=== PATIENT | female | born 1985 | race American Indian/Alaskan Native ===

== ENCOUNTER 2017-04-23 23:34 | Emergency (ER) | payer MEDICAID ==
--- NOTE | 2017-04-24 01:00 | XRay Report ---
FINAL REPORT EXAM: XR KNEE 1-2V RT HISTORY: Right knee pain. TECHNIQUE: Frontal and lateral radiographs of the right knee were obtained. No prior studies are available for comparison. FINDINGS: There is no fracture or dislocation. No other discrete osseous abnormality is seen. No significant soft tissue abnormality is identified. If pain persists, MRI examination is suggested for more definitive evaluation. IMPRESSION: No fracture, dislocation, or other osseous abnormality.
--- NOTE | 2017-04-24 07:44 | Emergency Department Report ---
ED Lower Extremity HPI - General Chief Complaint: Extremity Injury, Lower Stated Complaint: BACK PAIN Time Seen by Provider: 04/24/17 07:06 Source: patient, family Mode of arrival: Ambulatory Limitations: No Limitations - History of Present Illness Initial Comments: This is a 31-year-old female here reports that she injured her right knee 5 days ago after playing with her kids. She says she is limping but able to walk. She says she thinks she might have injured or pull something was up a basketball with her kids. Pain is 8 out of 10 located to right anterior knee pain is achy and worse with movement better with rest then .she took over-the- counter pain medication that didn't help. Denies any pain radiating distally or proximally. Reports swelling. Patient with h/o hiv and immunocompetent. She has primary care and infectious disease doctor. Patient is on medication for HIV. Denies any fever or chills. Denies any redness or change in temperature when compared to left knee. MD Complaint: knee injury Onset/Timin -: days(s) Injury: Knee: Right (pain and swelling after injury) Type of Injury: hyperextension Place: street/outdoors Severity: severe Severity scale (0 -10): 8 Improves With: NSAID, rest Worsens With: weight bearing, movement, palpation Context: jumping Associated Symptoms: swelling, able to partially bear weight. denies: snap/pop sensation, numbness, tingling Treatments Prior to Arrival: NSAIDS - Related Data Home Medications Medication Instructions Recorded Confirmed Last Taken Emtricitabin/Tenofovir [TRUVADA 1 tab PO DAILY 09/17/14 02/10/15 02/09/15 200-300 mg] Raltegravir Potassium [Isentress] 400 mg PO BID 09/17/14 02/10/15 02/09/15 Previous Rx's Medication Instructions Recorded Last Taken Type Ferrous Sulfate [Feosol 325 MG tab] 325 mg PO BID #60 tablet 01/10/15 02/09/15 Rx Acetamin/Codeine 120-12Mg/5 ml 5 ml PO TID PRN #30 oz 02/10/15 Unknown Rx [Tylenol/Codeine] Sulfamethoxazole/Trimethoprim 1 each PO BID #20 tablet 02/10/15 Unknown Rx [Bactrim DS TAB] HYDROcodone/APAP 10-325 [[place] 1 each PO Q4-6H PRN #25 tablet 02/28/15 Unknown Rx 10/325] Sulfamethoxazole/Trimethoprim 1 each PO Q12H #20 tablet 02/28/15 Unknown Rx [Bactrim DS TAB] Ibuprofen [Motrin] 600 mg PO Q8H PRN #12 tablet 04/24/17 Unknown Rx Allergies Allergy/AdvReac Type Severity Reaction Status Date / Time aspirin Allergy Swelling Verified 02/28/15 09:18 ED Review of Systems ROS: Stated complaint: BACK PAIN Other details as noted in HPI Comment: All other systems reviewed and negative Constitutional: no symptoms reported Respiratory: no symptoms reported Cardiovascular: denies: chest pain, palpitations, dyspnea on exertion, edema, syncope, paroxysmal nocturnal dyspnea Gastrointestinal: denies: abdominal pain, nausea, vomiting, diarrhea Genitourinary: denies: dysuria Musculoskeletal: joint swelling, arthralgia. denies: back pain, myalgia Skin: denies: rash Neurological: abnormal gait. denies: headache, numbness, paresthesias ED Past Medical Hx - Past Medical History Previous Medical History?: Yes Hx HIV: Yes (on meds) Additional medical history: SICKLE CELL TRAIT. SCOLEOSIS - Surgical History Past Surgical History?: Yes Additional Surgical History: LEEP. - Family History Family history: hypertension - Social History Smoking Status: Never Smoker Substance Use Type: None - Medications Home Medications: Home Medications Medication Instructions Recorded Confirmed Last Taken Type Emtricitabin/Tenofovir [TRUVADA 1 tab PO DAILY 09/17/14 02/10/15 02/09/15 History 200-300 mg] Raltegravir Potassium [Isentress] 400 mg PO BID 09/17/14 02/10/15 02/09/15 History Ferrous Sulfate [Feosol 325 MG tab] 325 mg PO BID #60 tablet 01/10/15 02/10/15 02/09/15 Rx Acetamin/Codeine 120-12Mg/5 ml 5 ml PO TID PRN #30 oz 02/10/15 Unknown Rx [Tylenol/Codeine] Sulfamethoxazole/Trimethoprim 1 each PO BID #20 tablet 02/10/15 Unknown Rx [Bactrim DS TAB] HYDROcodone/APAP 10-325 [[place] 1 each PO Q4-6H PRN #25 tablet 02/28/15 Unknown Rx 10/325] Sulfamethoxazole/Trimethoprim 1 each PO Q12H #20 tablet 02/28/15 Unknown Rx [Bactrim DS TAB] Ibuprofen [Motrin] 600 mg PO Q8H PRN #12 tablet 04/24/17 Unknown Rx ED Physical Exam - General Limitations: No Limitations General appearance: alert, in no apparent distress - Head Head exam: Present: atraumatic, normocephalic, normal inspection - Eye Eye exam: Present: normal appearance, PERRL, EOMI Pupils: Present: normal accommodation - ENT ENT exam: Present: normal exam, normal orophraynx, mucous membranes moist - Neck Neck exam: Present: normal inspection, full ROM, other (no C-spine tenderness). Absent: tenderness, meningismus, lymphadenopathy, thyromegaly - Respiratory Respiratory exam: Present: normal lung sounds bilaterally. Absent: respiratory distress, chest wall tenderness, accessory muscle use - Cardiovascular Cardiovascular Exam: Present: regular rate, normal rhythm, normal heart sounds. Absent: systolic murmur, diastolic murmur - GI/Abdominal GI/Abdominal exam: Present: soft, normal bowel sounds. Absent: distended, tenderness, guarding, rebound, rigid, organomegaly, mass, bruit, pulsatile mass , hernia - Extremities Exam Extremities exam: Present: tenderness (right anterior knee), normal capillary refill, joint swelling, other (no clubbing, cyanosis to extremities. Patient with swelling to right anterior knee otherwise all extremities without any swelling. +2 pulses all extremities. No neurovascular compromise. No abrasion , laceration or contusion. Positive swelling to right knee without any effusion or crepitus. Painful to weight-bear to right knee). Absent: normal inspection, full ROM (patient able to flex and extend her knee but she reports painful with active range of motion to right knee.), pedal edema, calf tenderness - Expanded Lower Extremity Exam Right Hip exam: Present: normal inspection, full ROM, pelvic stability. Absent: tenderness, swelling, abrasion, laceration, ecchymosis, deformity, crepidus, dislocation, erythema, external rotation, internal rotation, shortening Upper Leg exam: Present: normal inspection, full ROM. Absent: tenderness, swelling, abrasion, laceration, ecchymosis, deformity, crepidus, dislocation, erythema Knee exam: Present: full ROM (painful with flexion and extension of right knee) , tenderness, swelling (right anterior knee), pain w/ pronation/supination, full knee extension (Flonase extension but painful to extend.). Absent: normal inspection, abrasion, laceration, ecchymosis, deformity, crepidus, dislocation, erythema, effusion, pain/laxity with valgus, pain/laxity with varus Lower Leg exam: Present: normal inspection, full ROM. Absent: tenderness, swelling, abrasion, laceration, ecchymosis, deformity, crepidus, dislocation, erythema, palpable cord, Tish's sign Ankle exam: Present: normal inspection, full ROM. Absent: tenderness, swelling , abrasion, laceration, ecchymosis, deformity, crepidus, dislocation, erythema Foot/Toe exam: Present: normal inspection, full ROM. Absent: tenderness, swelling, abrasion, laceration, ecchymosis, deformity, crepidus, dislocation, erythema, foreign body, nail avulsion, subungual hematoma Neuro vascular tendon exam: Present: no vascular compromise. Absent: pulse deficit, abnormal cap refill, motor deficit, sensory deficit, tendon deficit, extremity cold to touch, pallor, abnormal 2-point discrimination, decreased fine /light touch, foot drop, peroneal nerve deficit, significant pain with passive ROM of distal joint Gait: Positive: antalgic - Back Exam Back exam: Present: normal inspection, full ROM, other (patient ambulates but she believes with a limp.). Absent: tenderness, CVA tenderness (R), CVA tenderness (L), muscle spasm, paraspinal tenderness, vertebral tenderness, rash noted - Neurological Exam Neurological exam: Present: alert, oriented X3, abnormal gait (patient with limp into right lower extremity due to injury of right knee.), reflexes normal. Absent: motor sensory deficit - Psychiatric Psychiatric exam: Present: normal affect, normal mood - Skin Skin exam: Present: warm, dry, intact, normal color. Absent: rash ED Course Vital Signs 04/24/17 04/24/17 04/24/17 00:24 07:57 08:12 Temperature 98.4 F 98.1 F Pulse Rate 78 73 Respiratory 17 18 12 Rate Blood Pressure 115/64 Blood Pressure 104/70 [Left] O2 Sat by Pulse 98 98 Oximetry - Reevaluation(s) Reevaluation #1: 04/24/17 08:28 Patient given [place] 5/325 2 tablets by mouth in emergency room. See procedure note for suspension details - Orthopedic Splinting/Casting Injury #1 Side: right Lower Extremity Injury Location: knee Lower Extremity Immobilizer: Lito wrap Other Orthopedic Equipment: crutches Additional Comments: Patient with good neurovascular status post splint. Good color, sensation, movement and temperature to both feet. ED Lower Extremity MDM - Radiology Data X-ray of right knee shows patient with no fracture or dislocation. No significant soft tissue swelling. Physical finding for tenderness and mild swelling to anterior right knee. - Medical Decision Making ED course: Patient here after injuring her right knee 5 days ago and basketball with her kids. She reports ongoing pain despite taking in and said. She is able to ambulate but she is limping and so she has severe pain when she bears weight. Physical findings for moderate swelling and tenderness anterior knee. X-ray shows no acute fracture dislocation and no mention of soft tissue swelling but suggests MRI if the patient continues to have pain. I discussed patient her x-ray results and my physical findings and discussed treatment plan , follow-up. She was given [place] 5/325 2 tablets by mouth in emergency room with positive relief of pain. Please see procedure note for splint in detail. Patient discharged home with her family in stable condition with prescription for Motrin and Rice therapy explained. Critical care attestation.: If time is entered above; I have spent that time in minutes in the direct care of this critically ill patient, excluding procedure time. ED Disposition Clinical Impression: Difficulty in weight bearing, Arthralgia of right knee Knee sprain Qualifiers: Encounter type: initial encounter Involved ligament of knee: unspecified ligament Laterality: right Qualified Code(s): S83.91XA - Sprain of unspecified site of right knee, initial encounter Right knee injury Qualifiers: Encounter type: initial encounter Qualified Code(s): S89.91XA - Unspecified injury of right lower leg, initial encounter Disposition: TO HOME OR SELFCARE Is pt being admited?: No Does the pt Need Aspirin: No Condition: Stable Instructions: Arthralgia (ED), Knee Sprain (ED), Knee Pain (ED), Knee Exercises (GEN), Crutch Instructions (ED), RICE Therapy (ED) Additional Instructions: Please follow up with primary care as recommended and U or infectious disease doctor now that [facility] hospital for [facility] injury and has knee sprain. Increase fluid intake Take medication as prescribed . Referred to discharge instruction in Rice therapy. follow-up with orthopedic doctor as instructed. If you develop, redness, increased swelling, fever and/or chills and increasing pain please return to the emergency room otherwise follow-up with orthopedic doctor tomorrow Prescriptions: Ibuprofen [Motrin] 600 mg PO Q8H PRN #12 tablet PRN Reason: Pain Referrals: PRIMARY MD JULIENNE [Primary Care Provider] - 04/28/17 TIMA NAYAK MD [Staff Physician] - 04/25/17 Forms: Work/School Release Form(ED)
[2017-04-24] MEDS ORDERED: NORCO 5/325 PO ONE (07:45)
[2017-04-24 08:15] VITALS: BP 104/70
== END 2017-04-24 09:20 | disposition home or self-care (01) ==
LOC: ED 23:34
DX: S83.91XA Sprain of unspecified site of right knee, initial encounter (principal); X58.XXXA Exposure to other specified factors, initial encounter; Y93.89 Activity, other specified; Y92.89 Other specified places as the place of occurrence of the external cause; Y99.8 Other external cause status

== ENCOUNTER 2017-05-30 12:34 | Emergency (ER) | payer MEDICAID ==
[2017-05-30 16:44] VITALS: BP 109/69
[2017-05-30] MEDS ORDERED: NORCO 5/325 PO ONE (16:49)
--- NOTE | 2017-05-30 16:52 | Emergency Department Report ---
Chief Complaint: Skin/Abscess/Foreign Body Stated Complaint: BURNING AT C SECTION SITE Time Seen by Provider: 05/30/17 14:55 - HPI History of Present Illness: The patient is a 31-year-old female presents with hours of abdominal pain and right wrist pain. The patient reports on and off suprapubic abdominal pain for greater than the past 2 years, recurrent one week ago, burning and sharp in quality, 10/10 in severity, exacerbated with bending over. She shares that her abdominal pain has been occurring since greater than 2 years ago. She states that her right wrist pain has been present for greater than one month , achy in quality, mild in severity, exacerbated with movement of the wrist. She denies trauma to the wrist or abdomen, chills, night sweats, diarrhea, blood in the stool, dark tarry stool, dysuria, hematuria, flank pain, genital discharge, inability to pass flatus. - Exam Vital Signs: Vital Signs 05/30/17 05/30/17 12:51 16:33 Temperature 98.7 F Pulse Rate 79 79 Respiratory 19 Rate Blood Pressure 113/73 109/69 O2 Sat by Pulse 97 97 Oximetry MSE screening note: Focused history and physical exam performed. Due to findings the following was ordered: ED Disposition for MSE Condition: Stable Referrals: PRIMARY CARE, [Primary Care Provider] - 3-5 Days
[2017-05-30 17:28] LABS: Bilirubin,Urine NEG (Negative); Blood,Urine NEG (Negative); Color,Urine Yellow (Yellow); HCG Qualitative,Urine Negative (Negative); Protein,Urine <15 mg/dL mg/dL (Negative)
--- NOTE | 2017-05-30 18:41 | Emergency Department Report ---
HPI - General Chief Complaint: Skin/Abscess/Foreign Body Time Seen by Provider: 05/30/17 14:55 - HPI HPI: The patient is a 31-year-old female presents with hours of abdominal pain and right wrist pain. The patient reports on and off suprapubic abdominal pain for greater than the past 2 years, recurrent one week ago, burning and sharp in quality, 10/10 in severity, exacerbated with bending over. She shares that her abdominal pain has been occurring since greater than 2 years ago. She states that her right wrist pain has been present for greater than one month , achy in quality, mild in severity, exacerbated with movement of the wrist. She denies trauma to the wrist or abdomen, chills, night sweats, diarrhea, blood in the stool, dark tarry stool, dysuria, hematuria, flank pain, genital discharge, inability to pass flatus. ED Past Medical Hx - Past Medical History Previous Medical History?: Yes Hx Arthritis: Yes Hx HIV: Yes (on meds) Additional medical history: SICKLE CELL TRAIT. SCOLIOSIS - Surgical History Past Surgical History?: Yes Additional Surgical History: LEEP. - Family History Family history: hypertension - Social History Smoking Status: Current Some Day Smoker Substance Use Type: None - Medications Home Medications: Home Medications Medication Instructions Recorded Confirmed Last Taken Type Emtricitabin/Tenofovir [TRUVADA 1 tab PO DAILY 09/17/14 02/10/15 02/09/15 History 200-300 mg] Raltegravir Potassium [Isentress] 400 mg PO BID 09/17/14 02/10/15 02/09/15 History Ferrous Sulfate [Feosol 325 MG tab] 325 mg PO BID #60 tablet 01/10/15 02/10/15 02/09/15 Rx Acetamin/Codeine 120-12Mg/5 ml 5 ml PO TID PRN #30 oz 02/10/15 Unknown Rx [Tylenol/Codeine] Sulfamethoxazole/Trimethoprim 1 each PO BID #20 tablet 02/10/15 Unknown Rx [Bactrim DS TAB] HYDROcodone/APAP 10-325 [[place] 1 each PO Q4-6H PRN #25 tablet 02/28/15 Unknown Rx 10/325] Sulfamethoxazole/Trimethoprim 1 each PO Q12H #20 tablet 02/28/15 Unknown Rx [Bactrim DS TAB] Ibuprofen [Motrin] 600 mg PO Q8H PRN #12 tablet 04/24/17 Unknown Rx traMADol [Ultram 50 MG tab] 50 mg PO Q6HR PRN #12 tablet 05/30/17 Unknown Rx ED Review of Systems ROS: Stated complaint: BURNING AT C SECTION SITE Other details as noted in HPI Comment: All other systems reviewed and negative Constitutional: no symptoms reported Respiratory: no symptoms reported Cardiovascular: denies: chest pain, palpitations, dyspnea on exertion, edema, syncope, paroxysmal nocturnal dyspnea Gastrointestinal: abdominal pain. denies: nausea, vomiting, diarrhea, constipation, hematemesis, melena, hematochezia Genitourinary: denies: urgency, dysuria, frequency, hematuria, discharge, abnormal menses, dyspareunia Musculoskeletal: denies: back pain, joint swelling, arthralgia, myalgia Skin: denies: rash Neurological: denies: headache, weakness, numbness, paresthesias, confusion, abnormal gait, vertigo Physical Exam - Physical Exam Vital Signs: Vital Signs 05/30/17 05/30/17 12:51 16:33 Temperature 98.7 F Pulse Rate 79 79 Respiratory 19 Rate Blood Pressure 113/73 109/69 O2 Sat by Pulse 97 97 Oximetry General: 31 yo female well-nourished well-developed in no acute distress. Physical Exam: Head: Normocephalic, atraumatic, no abrasion, no bruising and no contusion. Eyes: Biateral pupils equal and reactive to light, bilateral EOM intact.. Bilateral conjunctival and sclera without injection, normal accommodation. Mouth: Moist, no pharyngeal exudate or erythema. No peritonsillar abscesses. Uvula is midline and oral airways patent. Neck: Supple, No Cervical adenopathy, full range of motion and no C-spine tenderness. No swelling or tracheal deviation normal reflexes Cardiovascular: S1, S2. Regular rate and rhythm. No murmur. Capillary refill is less then 3 seconds. Lungs: Clear to auscultate bilaterally. No rhonchi, wheezes or rales. No chest wall tenderness. No chest contusion. No bruising to chest. MSK: Strength 5/5 in all extremities. No joint deformity or crepitus. Normal inspection. Full range of motion to all extremities. No laceration, abrasion or ecchymotic area noted. Abdomen: Non-tender to palpate in all quadrants, except around scar which is keloid. No signs of infection. No guarding or rebound tenderness, positive bowel sounds in all quadrants. No CVA tenderness. No hernia, bruit or mass. No rigidity or distention. Extremities: No clubbing, cyanosis or edema. +2 pulses. No neurovascular compromise. Small ganglion cyst noted to right inner wrist. No erythema. Mild tenderness to palpate. Skin: Clean, dry and intact. No rash or lesions. Neurological: GCS at 15, Pt is alert and oriented 3 speech is clear period. 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 Normal gait. Negative Romberg and no pronator drift. Normal Reflexes. No motor or sensory deficit Psych: Normal mood and behavior ED Course Vital Signs 05/30/17 05/30/17 12:51 16:33 Temperature 98.7 F Pulse Rate 79 79 Respiratory 19 Rate Blood Pressure 113/73 109/69 O2 Sat by Pulse 97 97 Oximetry - Reevaluation(s) Reevaluation #1: 05/30/17 18:51 Patient is stable in no acute distress. Patient given 5/325 mg by mouth ED Medical Decision Making - Medical Decision Making ED course: Patient reports that she has pain at her site that started ongoing for a while and also she has small area to her right wrist that is swollen. Patient found to have a ganglion cyst to her right inner wrist without any signs of infection. She is able to flex and extend her with wrist without any problem and has no restriction in movement to wrist and her fingers bilaterally. She has keloid tissue to scar with some tenderness to palpate without any sign of infection. Tenderness is localized to 2 keloid tissue. I discussed the patient that she'll need to follow-up with surgery for pain to scar and keloid tissue and to orthopedic doctor for ganglion on cyst to right wrist. She was given [place] 5/325 one tablet emergency room which resolve her pain. Urinalysis and test is negative and this was relayed to patient. Patient discharged home in stable condition with prescription for Ultram and to follow-up with specialty that she was recommended to Critical care attestation.: If time is entered above; I have spent that time in minutes in the direct care of this critically ill patient, excluding procedure time. ED Disposition Clinical Impression: Keloid scar of skin, Ganglion cyst of dorsum of right wrist, Painful cutaneous scar Disposition: [id number] TO HOME OR SELFCARE Is pt being admited?: No Does the pt Need Aspirin: No Condition: Stable Instructions: Arthralgia (ED) Additional Instructions: You have a ganglion cyst to the right wrist and he will need to follow up with orthopedic doctor You have keloid to your site which is painful so you need to follow- up with surgery. Take Ultram for pain but please do not drive or operate heavy machinery while taking this medication as it causes drowsiness Prescriptions: traMADol [Ultram 50 MG tab] 50 mg PO Q6HR PRN #12 tablet PRN Reason: Pain Referrals: PRIMARY CAREMD [Primary Care Provider] - 06/02/17 MANDY BONDS DO [Staff Physician] - 2-3 Days TIMA NAYAK MD [Staff Physician] - 3-5 Days Forms: Work/School Release Form(ED), Accompanied Note
== END 2017-05-30 19:14 | disposition home or self-care (01) ==
LOC: ED 12:34
DX: L91.0 Hypertrophic scar (principal); M67.431 Ganglion, right wrist; M19.90 Unspecified osteoarthritis, unspecified site; F17.200 Nicotine dependence, unspecified, uncomplicated
CPT/HCPCS: 81001; 81025; 99283

== ENCOUNTER 2017-07-06 21:36 | Emergency (ER) | payer MEDICAID ==
[2017-07-06 22:10] VITALS: BP 111/74
[2017-07-07 00:23] LABS: Bilirubin,Urine NEG (Negative); Blood,Urine NEG (Negative); Color,Urine Yellow (Yellow); Protein,Urine <15 mg/dL mg/dL (Negative); Urobilinogen,Urine < 2.0 mg/dL (<2.0)
[2017-07-07 00:33] LABS: HCG Qualitative,Urine Negative (Negative)
--- NOTE | 2017-07-07 01:51 | Emergency Department Report ---
ED General Adult HPI - General Chief complaint: Urogenital-Female Stated complaint: ABD PAIN Time Seen by Provider: 07/07/17 01:45 Source: patient Mode of arrival: Ambulatory Limitations: No Limitations - History of Present Illness Initial comments: pt is a 31 y/o aaf who present for keloid pain at c section site, state c section 2 yrs ago and scar tissue pain since pt denies fever no chills no back pain no dysuria no n/v no vaginal discharge pt is s/p tubal ligation, 2 yrs ago LMP 06/23/2017, Onset/Timin -: unknown (years) Location: abdomen (superpubic ) Radiation: non-radiation Severity scale (0 -10): 3 Quality: aching Consistency: intermittent Improves with: none Worsens with: none Associated Symptoms: denies other symptoms Treatments Prior to Arrival: none - Related Data Home Medications Medication Instructions Recorded Confirmed Last Taken Emtricitabin/Tenofovir [TRUVADA 1 tab PO DAILY 09/17/14 02/10/15 02/09/15 200-300 mg] Raltegravir Potassium [Isentress] 400 mg PO BID 09/17/14 02/10/15 02/09/15 Previous Rx's Medication Instructions Recorded Last Taken Type Ferrous Sulfate [Feosol 325 MG tab] 325 mg PO BID #60 tablet 01/10/15 02/09/15 Rx Acetamin/Codeine 120-12Mg/5 ml 5 ml PO TID PRN #30 oz 02/10/15 Unknown Rx [Tylenol/Codeine] Sulfamethoxazole/Trimethoprim 1 each PO BID #20 tablet 02/10/15 Unknown Rx [Bactrim DS TAB] HYDROcodone/APAP 10-325 [Angier 1 each PO Q4-6H PRN #25 tablet 02/28/15 Unknown Rx 10/325] Sulfamethoxazole/Trimethoprim 1 each PO Q12H #20 tablet 02/28/15 Unknown Rx [Bactrim DS TAB] Ibuprofen [Motrin] 600 mg PO Q8H PRN #12 tablet 04/24/17 Unknown Rx traMADol [Ultram 50 MG tab] 50 mg PO Q6HR PRN #12 tablet 05/30/17 Unknown Rx Acetaminophen [Tylenol] 1,000 mg PO Q6HR #30 tablet 07/07/17 Unknown Rx Allergies Allergy/AdvReac Type Severity Reaction Status Date / Time aspirin Allergy Swelling Verified 02/28/15 09:18 ED Review of Systems ROS: Stated complaint: ABD PAIN Other details as noted in HPI Constitutional: denies: chills, fever Eyes: denies: eye pain, eye discharge, vision change ENT: denies: ear pain, throat pain Respiratory: denies: cough, shortness of breath, wheezing Cardiovascular: denies: chest pain, palpitations Endocrine: no symptoms reported Gastrointestinal: abdominal pain (superpubic c section site ). denies: nausea, diarrhea Genitourinary: denies: urgency, dysuria, discharge Musculoskeletal: denies: back pain, joint swelling, arthralgia Skin: denies: rash, lesions Neurological: denies: headache, weakness, paresthesias Psychiatric: denies: anxiety, depression Hematological/Lymphatic: denies: easy bleeding, easy bruising ED Past Medical Hx - Past Medical History Hx Arthritis: Yes Hx HIV: Yes (on meds) Additional medical history: SICKLE CELL TRAIT. SCOLIOSIS - Surgical History Additional Surgical History: LEEP. - Social History Smoking Status: Never Smoker Substance Use Type: None - Medications Home Medications: Home Medications Medication Instructions Recorded Confirmed Last Taken Type Emtricitabin/Tenofovir [TRUVADA 1 tab PO DAILY 09/17/14 02/10/15 02/09/15 History 200-300 mg] Raltegravir Potassium [Isentress] 400 mg PO BID 09/17/14 02/10/15 02/09/15 History Ferrous Sulfate [Feosol 325 MG tab] 325 mg PO BID #60 tablet 01/10/15 02/10/15 02/09/15 Rx Acetamin/Codeine 120-12Mg/5 ml 5 ml PO TID PRN #30 oz 02/10/15 Unknown Rx [Tylenol/Codeine] Sulfamethoxazole/Trimethoprim 1 each PO BID #20 tablet 02/10/15 Unknown Rx [Bactrim DS TAB] HYDROcodone/APAP 10-325 [Angier 1 each PO Q4-6H PRN #25 tablet 02/28/15 Unknown Rx 10/325] Sulfamethoxazole/Trimethoprim 1 each PO Q12H #20 tablet 02/28/15 Unknown Rx [Bactrim DS TAB] Ibuprofen [Motrin] 600 mg PO Q8H PRN #12 tablet 04/24/17 Unknown Rx traMADol [Ultram 50 MG tab] 50 mg PO Q6HR PRN #12 tablet 05/30/17 Unknown Rx Acetaminophen [Tylenol] 1,000 mg PO Q6HR #30 tablet 07/07/17 Unknown Rx ED Physical Exam - General Limitations: No Limitations General appearance: alert, in no apparent distress - Head Head exam: Present: atraumatic, normocephalic - Eye Eye exam: Present: normal appearance - ENT ENT exam: Present: mucous membranes moist - Neck Neck exam: Present: normal inspection - Respiratory Respiratory exam: Present: normal lung sounds bilaterally. Absent: respiratory distress - Cardiovascular Cardiovascular Exam: Present: regular rate, normal rhythm. Absent: systolic murmur, diastolic murmur, rubs, gallop - GI/Abdominal GI/Abdominal exam: Present: soft, normal bowel sounds, other (c section site keloid palpable scar tissue no erythema no swelling no ecchymosis no rebound no swelling ). Absent: distended, tenderness, guarding, rebound, rigid, organomegaly, mass, bruit, pulsatile mass, hernia - Rectal Rectal exam: Present: deferred - Extremities Exam Extremities exam: Present: normal inspection - Back Exam Back exam: Present: normal inspection, full ROM. Absent: tenderness, CVA tenderness (R), CVA tenderness (L), muscle spasm, paraspinal tenderness, vertebral tenderness - Neurological Exam Neurological exam: Present: alert, oriented X3 - Psychiatric Psychiatric exam: Present: normal affect, normal mood - Skin Skin exam: Present: warm, dry, intact, normal color. Absent: rash ED Course Vital Signs 07/06/17 22:06 Temperature 98.3 F Pulse Rate 76 Respiratory 14 Rate Blood Pressure 111/74 O2 Sat by Pulse 100 Oximetry ED Medical Decision Making - Lab Data Laboratory Tests 07/06/17 23:53 Urine Color Yellow Urine Turbidity Clear Urine pH 5.0 Ur Specific [place] 1.021 Urine Protein <15 mg/dl Urine Glucose (UA) Neg Urine Ketones Neg Urine Blood Neg Urine Nitrite Neg Urine Bilirubin Neg Urine Urobilinogen < 2.0 Ur Leukocyte Esterase Neg Urine WBC (Auto) 1.0 Urine RBC (Auto) 1.0 U Epithel Cells (Auto) 3.0 Urine HCG, Qual Negative - Medical Decision Making this surgical site pain chronic , plan naproxen po bid prn pain follow up with OBGYN/general surgery in 2-3 days pt verbalized agreement and understanding of same. Critical care attestation.: If time is entered above; I have spent that time in minutes in the direct care of this critically ill patient, excluding procedure time. ED Disposition Clinical Impression: Keloid of skin Chronic pain Qualifiers: Chronic pain type: other chronic pain Qualified Code(s): G89.29 - Other chronic pain Disposition: DC-01 TO HOME OR SELFCARE Is pt being admited?: No Does the pt Need Aspirin: No Condition: Good Instructions: Scleroderma (ED), Abdominal Pain (ED) Prescriptions: Acetaminophen [Tylenol] 1,000 mg PO Q6HR #30 tablet Referrals: LOS HAYNES MD [Staff Physician] - 3-5 Days Forms: Work/School Release Form(ED) Time of Disposition: 01:57
[2017-07-07] MEDS ORDERED: TYLENOL ONE (02:08)
[2017-07-07] MEDS ORDERED: TYLENOL PO ONE (02:10)
== END 2017-07-07 02:15 | disposition home or self-care (01) ==
LOC: ED 21:36
DX: L91.0 Hypertrophic scar (principal); G89.29 Other chronic pain; Z79.82 Long term (current) use of aspirin; M19.90 Unspecified osteoarthritis, unspecified site
CPT/HCPCS: 81001; 81025; 99283